=== PATIENT | male | born 1980 | race Caucasian/White ===

== ENCOUNTER 2019-03-08 13:55 | Emergency (ER) | payer MEDICAID ==
[~2019-03-08] VITALS: Ht 167.6 cm; Wt 90.7 kg
[2019-03-08 14:15] VITALS: BP 127/70
== END 2019-03-08 15:57 | disposition home or self-care (01) ==
LOC: ER 13:55
DX: S16.1XXA Strain of muscle, fascia and tendon at neck level, initial encounter (principal); S39.012A Strain of muscle, fascia and tendon of lower back, initial encounter; Z88.0 Allergy status to penicillin; V49.49XA Driver injured in collision with other motor vehicles in traffic accident, initial encounter; Y93.89 Activity, other specified; Y99.8 Other external cause status; Y92.488 Other paved roadways as the place of occurrence of the external cause
CPT/HCPCS: 72040; 72100